=== PATIENT | male | born 1945 | race Caucasian/White ===

== ENCOUNTER 2023-05-28 05:48 | Day surgery (SDC) | payer MEDICARE, BC ==
[2023-05-27 11:37] VITALS: BMI 27.2
[2023-05-28] MEDS ORDERED: Bupivacaine PF 0.5% 30 ML VIAL ONE (06:35)
[2023-05-28] MEDS ORDERED: EPINEPHrine 1 MG/ML VIAL ONE (06:35)
[2023-05-28] MEDS ORDERED: Piperacillin/Tazobactam 3.375 GM VIAL ONE (06:59)
[2023-05-28] MEDS ORDERED: Lidocaine 1% PF 5 ML VIAL ONE (07:18)
[2023-05-28] MEDS ORDERED: PROPOFOL 40 ML ONE (07:18)
[2023-05-28] MEDS ORDERED: PROPOFOL 20 ML ONE (07:29)
[2023-05-28] MEDS ORDERED: Bupivacaine/Epinephrine 0.25% 30 ML VIAL ONE (07:50)
[2023-05-28] MEDS ORDERED: Acetaminophen 325 MG TAB PO PRN ×2 (08:15)
[2023-05-28] MEDS ORDERED: traMADol HCl 50 MG TAB PO PRN (08:15)
[2023-05-28] MEDS ORDERED: oxyCODONE 5 MG TAB ONE (09:07)
== END 2023-05-28 10:00 | disposition home or self-care (01) ==
LOC: CSHSDC 05:48
PROVIDERS: ATTEND Surgery
PROC: 0JH60WZ Insertion of Totally Implantable Vascular Access Device into Chest Subcutaneous Tissue and Fascia, Open Approach (ICD-10-PCS; principal; 2023-05-28)
PROC: 0DH63UZ Insertion of Feeding Device into Stomach, Percutaneous Approach (ICD-10-PCS; 2023-05-28)
DX: C80.1 Malignant (primary) neoplasm, unspecified (principal); C79.89 Secondary malignant neoplasm of other specified sites; E78.5 Hyperlipidemia, unspecified; K21.9 Gastro-esophageal reflux disease without esophagitis; I25.10 Atherosclerotic heart disease of native coronary artery without angina pectoris; Z95.5 Presence of coronary angioplasty implant and graft; Z91.018 Allergy to other foods; Z91.048 Other nonmedicinal substance allergy status; Z87.891 Personal history of nicotine dependence; Z79.899 Other long term (current) drug therapy; Z88.5 Allergy status to narcotic agent; Z88.8 Allergy status to other drugs, medicaments and biological substances
CPT/HCPCS: 36561; 49440; 71045; J0171; C1788; J1642; J2543; J2704; S0020